=== PATIENT | male | born 1985 | race Caucasian/White ===

== ENCOUNTER 2023-03-27 20:16 | Emergency (ER) | payer MEDICAID ==
[~2023-03-27] VITALS: Ht 177.8 cm; Wt 93.0 kg
[2023-03-27 20:40] VITALS: BP 142/94
[2023-03-27] MEDS ORDERED: HYDROcodone-ACET 10/325MG TAB PO ONE (23:00)
[2023-03-27] MEDS ORDERED: ACET650T12 PO (23:02)
== END 2023-03-27 23:07 | disposition home or self-care (01) ==
LOC: ER 20:19
DX: M79.642 Pain in left hand (principal); Z88.6 Allergy status to analgesic agent
CPT/HCPCS: 73130